=== PATIENT | female | born 1990 | race Caucasian/White ===

== ENCOUNTER 2025-02-27 12:45 | Emergency (ER) | payer OTHER ==
[~2025-02-27] VITALS: Ht 162.6 cm; Wt 55.0 kg
[2025-02-27] MEDS ORDERED: PAXLOVID 300-11 EAC1 PO (13:36)
--- OUTSIDE RECORDS SUMMARY | 2025-02-27 13:51 | XMS ---
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: [facility] 09/24/2016-[facility] [email or web address] GROUP PHONE: [phone] -, [facility] Dentist: Fleet Operations Manager [facility] PHONE: [phone] JOSE LEMONS [facility] INTERNAL MEDICINE-[place] PHONE: Unknown Blaire has no Care Guidelines for this patient. E.D. VISIT COUNT (12 MO.) 10 [facility] Cynthia Eduardo ([place]) 1 LON Elizalde TOTAL 11 NOTE: Visits indicate total known visits. ED/UCC VISIT TRACKING (12 MO.) 02/27/2025 12:46 [place] TYPE: Emergency COMPLAINT: - COLD SYMPTOMS 02/03/2025 16:39 [facility] Vesta ANDUJAR ([place]) TYPE: Emergency DIAGNOSES: - Unspecified abdominal pain - Abdominal Pain 01/30/2025 18:54 [facility] [place] ANDUJAR ([place] TYPE: Emergency DIAGNOSES: - Bacterial infection, unspecified - Bacterial infection, unspecified - Diarrhea, unspecified - Dizziness and giddiness - Migraine, unspecified, intractable, with status migrainosus - Unspecified abdominal pain - Unspecified abdominal pain - Urinary tract infection, site not specified - Urinary tract infection, site not specified - Abdominal Pain 01/28/2025 22:51 [facility] [place] ANDUJAR ([place] TYPE: Emergency DIAGNOSES: - Multiple sclerosis - back spasms, poss ms flare 01/15/2025 19:33 [facility] [place] ANDUJAR ([place] TYPE: Emergency DIAGNOSES: - Superficial foreign body, right foot, initial encounter - Foreign Body in Skin - splinter in rt foot 10/19/2024 03:40 [facility] [place] ([place]) TYPE: Emergency DIAGNOSES: - Other retention of urine - Other specified disorders of bladder - Unspecified abdominal pain - abd pain - Abdominal Pain 08/30/2024 20:53 [facility] [place] ([place]esta Lemons) TYPE: Emergency DIAGNOSES: - Dehydration - Migraine, unspecified, not intractable, without status migrainosus - Urinary tract infection, site not specified - Emesis - head pain - Headache (Adult - Recurrent Or Known Dx Migraines) - Muscle Pain 08/15/2024 13:48 [facility] Vesta Lemons PRAT[place] ([place]) TYPE: Emergency DIAGNOSES: - Migraine, unspecified, not intractable, without status migrainosus - Headache (Adult - Recurrent Or Known Dx Migraines) - Urinary Retention - urine retention,migraine 06/29/2024 10:46 [facility] [place] ([place]esta Lemons) TYPE: Emergency DIAGNOSES: - Cystitis, unspecified without hematuria - Right lower quadrant pain - abd pain - Abdominal Pain 04/02/2024 22:43 [facility] [place] ANDUJAR ([place]) TYPE: Emergency DIAGNOSES: - Adverse effect of glucocorticoids and synthetic analogues, initial encounter - Polydipsia - Headache (Adult - Recurrent Or Known Dx Migraines) - Headache (Peds - New Onset Or New Symptoms) - Hematuria - requesting insulin 03/09/2024 12:01 [facility] [place] ([place]esta Lemons) TYPE: Emergency DIAGNOSES: - Persistent migraine aura without cerebral infarction, intractable, with status migrainosus - Headache (Adult - Recurrent Or Known Dx Migraines) - mirgraine INPATIENT VISIT TRACKING (12 MO.) No inpatient visits to display in this time frame [email or web address]
[2025-02-27] MEDS ORDERED: CYCLOBENZAPRINE10 MG PO (13:59)
[2025-02-27 14:03] VITALS: BP 136/116
== END 2025-02-27 14:03 | disposition home or self-care (01) ==
LOC: ED 12:45
DX: U07.1 COVID-19 (principal); G35 Multiple sclerosis
CPT/HCPCS: 99283

== ENCOUNTER 2025-05-04 14:42 | Emergency (ER) | payer OTHER ==
[~2025-05-04] VITALS: Ht 162.6 cm; Wt 57.0 kg
[~2025-05-04 14:42] MED LIST: CYCLOBENZAPRINE10 MG PO; PAXLOVID 300-11 EAC1 PO
--- OUTSIDE RECORDS SUMMARY | 2025-05-04 14:48 | XMS ---
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 E.D. V[facility] (12 MO.) [facility] [facility] LON Elizalde TOTAL 12 NOTE: Visits indicate total known visits. ED/UCC VISIT TRACKING (12 MO.) 05/04/2025 14:[address] [facility] [address] Arturo Tan [place] TYPE: Emergency COMPLAINT: - COLD SYMPTOMS 04/06/2025 10:38 [facility] Alesha ANDUJAR ([place]) TYPE: Emergency DIAGNOSES: - Constipation, unspecified - Left lower quadrant pain - abd pain - Abdominal Pain 03/27/2025 13:16 [facility] Vesta Lemons PRATIM[place] ([place]) TYPE: Emergency DIAGNOSES: - Allergy to other foods - Allergy, unspecified, initial encounter - Allergic Reaction - Poss Allergic Reaction [facility]25 [facility] [place] [facility] COMPLAINT: - COLD SYMPTOMS DIAGNOSES: - COVID-19 - Headache, unspecified - Multiple sclerosis 02/03/2025 16:39 [facility] Vesta Lemons PRAT[place] ([place]) TYPE: Emergency DIAGNOSES: - Unspecified abdominal pain - Abdominal Pain 01/30/2025 18:54 [facility] Vesta ANDUJAR ([place]) TYPE: Emergency DIAGNOSES: - Bacterial infection, unspecified - Bacterial infection, unspecified - Diarrhea, unspecified - Dizziness and giddiness - Migraine, unspecified, intractable, with status migrainosus - Unspecified abdominal pain - Unspecified abdominal pain - Urinary tract infection, site not specified - Urinary tract infection, site not specified - Abdominal Pain 01/28/2025 22[facility] DIAGNOSES: - Multiple sclerosis - back spasms, poss ms flare 01/15/2025 19:33 [facility] TYPE: Emergency DIAGNOSES: - Superficial foreign body, right foot, initial encounter - Foreign Body in Skin - splinter in rt foot 10/19/2024 03:40 [facility] TYPE: Emergency DIAGNOSES: - Other retention of urine - Other specified disorders of bladder - Unspecified abdominal pain - abd pain - Abdominal Pain 08/30/2024 20:53 [facility] Vesta ANDUJAR ([place]) TYPE: Emergency DIAGNOSES: - Dehydration - Migraine, unspecified, not intractable, without status migrainosus - Urinary tract infection, site not specified - Emesis - head pain - Headache (Adult - Recurrent Or Known Dx Migraines) - Muscle Pain 08/15/2024 13:48 [facility] Vesta ANDUJAR ([place]) TYPE: Emergency DIAGNOSES: - Migraine, unspecified, not intractable, without status migrainosus - Headache (Adult - Recurrent Or Known Dx Migraines) - Urinary Retention - urine retention,migraine 06/29/2024 10:46 [facility] Vesta ANDUJAR ([place]) TYPE: Emergency DIAGNOSES: - Cystitis, unspecified without hematuria - Right lower quadrant pain - abd pain - Abdominal Pain INPATIENT VISIT TRACKING (12 MO.) No inpatient visits to display in this time frame [email or web address]
[2025-05-04] MEDS ORDERED: FLOMAX0.4 MG PO (20:08)
[2025-05-04] MEDS ORDERED: IBU600 MG PO (20:09)
[2025-05-04] MEDS ORDERED: LAMICTAL25 MG PO (20:10)
[2025-05-04] MEDS ORDERED: PROPRANOLOL HCL10 MG PO (20:10)
[2025-05-04] MEDS ORDERED: VENTOLIN HFA18 GM INH (20:11)
[2025-05-04] MEDS ORDERED: DOCUSATE SODIU100 MG PO (20:12)
[2025-05-04 20:24] LABS: CORONAVIRUS COVID-19 AG NEGATIVE (NEGATIVE)
[2025-05-04 22:25] VITALS: BP 114/63
== END 2025-05-04 22:25 | disposition home or self-care (01) ==
LOC: ED 14:42
PROVIDERS: Emergency Medicine
DX: J06.9 Acute upper respiratory infection, unspecified (principal); Z79.899 Other long term (current) drug therapy; Z88.0 Allergy status to penicillin
CPT/HCPCS: 36415; 71045; 99283-25

== ENCOUNTER 2025-05-20 21:08 | Emergency (ER) | payer OTHER ==
[~2025-05-20] VITALS: Ht 162.6 cm; Wt 59.5 kg
[~2025-05-20 21:08] MED LIST changes: +DOCUSATE SODIU100 MG PO; +FLOMAX0.4 MG PO; +IBU600 MG PO; +LAMICTAL25 MG PO; +PROPRANOLOL HCL10 MG PO; +VENTOLIN HFA18 GM INH
--- OUTSIDE RECORDS SUMMARY | 2025-05-20 21:09 | XMS ---
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 E.D. VISIT COUNT (12 MO.) 10 Brianne Gupta CarlitosRosa ([place]) [address] [facility] Arturo Peña TOTAL 13 NOTE: Visits indicate total known visits. ED/UCC VISIT TRACKING (12 MO.) 05/20/2025 21:09 [facility] [place] TYPE: Emergency COMPLAINT: - LEG SWELLING 05/04/2025 14:42 [facility] [place] TYPE: Emergency COMPLAINT: - COLD SYMPTOMS DIAGNOSES: - Acute upper respiratory infection, unspecified - Allergy status to penicillin - Cough, unspecified - Other intermediate (current) drug therapy 04/06/2025 10:38 [facility] Vesta ANDUJAR ([place]) TYPE: Emergency DIAGNOSES: - Constipation, unspecified - Left lower quadrant pain - abd pain - Abdominal Pain 03/27/2025 13:16 [facility] Vesta ANDUJAR ([place]) TYPE: Emergency DIAGNOSES: - Allergy to other foods - Allergy, unspecified, initial encounter - Allergic Reaction - Poss Allergic Reaction 02/27/2025 12[facility] [place] [facility] COMPLAINT: - COLD SYMPTOMS DIAGNOSES: - COVID-19 - Headache, unspecified - Multiple sclerosis 02/03/2025 16:39 [facility] Vesta ANDUJAR ([place]) TYPE: Emergency DIAGNOSES: - Unspecified abdominal pain - Abdominal Pain 01/30/2025 18:54 [facility] Vesta ANDUJAR ([place]) TYPE: Emergency DIAGNOSES: - Bacterial infection, unspecified - Bacterial infection, unspecified - Diarrhea, unspecified - Dizziness and giddiness - Migraine, unspecified, intractable, with status migrainosus - Unspecified abdominal pain - Unspecified abdominal pain - Urinary tract infection, site not specified - Urinary tract infection, site not specified - Abdominal Pain 01/28/2025 22:51 [facility] Vesta ANDUJAR ([place]) TYPE: Emergency DIAGNOSES: - Multiple sclerosis - back spasms, poss ms flare 01/15/2025 19:33 [facility] Vesta ANDUJAR ([place] Lem[place]) TYPE: Emergency DIAGNOSES: - Superficial foreign body, right foot, initial encounter - Foreign Body in Skin - splinter in rt foot 10/19/2024 03:40 [facility] Vesta Lemons PRATIM[place] ([place]) TYPE: Emergency DIAGNOSES: - Other retention of urine - Other specified disorders of bladder - Unspecified abdominal pain - abd pain - Abdominal Pain 08/30/2024 20:53 [facility] [place] PRATIMA (Vesta Lemons) TYPE: Emergency DIAGNOSES: - Dehydration - Migraine, unspecified, not intractable, without status migrainosus - Urinary tract infection, site not specified - Emesis - head pain - Headache (Adult - Recurrent Or Known Dx Migraines) - Muscle Pain 08/15/2024 13:48 [facility] Vesta Lemons PRATIMA ([place]) TYPE: Emergency DIAGNOSES: - Migraine, unspecified, not intractable, without status migrainosus - Headache (Adult - Recurrent Or Known Dx Migraines) - Urinary Retention - urine retention,migraine 06/29/2024 10:[facility] DIAGNOSES: - Cystitis, unspecified without hematuria - Right lower quadrant pain - abd pain - Abdominal Pain INPATIENT VISIT TRACKING (12 MO.) 05/15/2025 14:07 Marcin SANTOYO [place] ([facility]) TYPE: Neurology DIAGNOSES: - Migraine without aura, not intractable, without status migrainosus - Multiple sclerosis, unspecified [email or web address]
[2025-05-20] MEDS ORDERED: RIZATRIPTAN10 M1 PO (21:40)
[2025-05-20] MEDS ORDERED: EPINEPHRIN0.3 MG/0.3 IM (21:40)
[2025-05-20 22:09] LABS: BASOPHILS 0.1 % (0.1-1.2); EOSINOPHILS 0.5 % (0.7-5.8); LYMPHOCYTES 33.7 % (19.3-51.7); MCH 30.8 PG (25.6-32.2); MCHC 34.0 g/dL (32.2-35.5); MCV 90.6 fL (79.4-94.8); MONOCYTES 8.8 % (4.7-12.5); NEUTROPHILS 56.5 % (34.0-71.1); RBC 3.51 M/uL (3.93-5.22)
[2025-05-20 22:33] LABS: ALT (SGPT) 33.0 U/L (14-59); AST (SGOT) 8.0 U/L (15-37); GLOMERULAR FILTRATION RATE,EST 90.0 mL/min (>60); PROTEIN, TOTAL 5.3 g/dL (6.4-8.2); UREA NITROGEN 31.0 mg/dL (7-18)
[2025-05-20] MEDS ORDERED: POTASSIUM CHLORIDE 10 MEQ/100 ML BAG IV SCH (23:00)
[2025-05-20] MEDS ORDERED: CALCIUM GLUCONATE 1,000 MG/10 ML VIAL IV ONE (23:00)
[2025-05-20] MEDS ORDERED: POTASSIUM CHLORIDE 10 MEQ TABCR PO ONE (23:00)
[2025-05-21] MEDS ORDERED: KLOR-CON M2020 MEQ PO (01:58)
[2025-05-21] MEDS ORDERED: HYDROCODONE BIT/ACETAMINOPHEN 5/325 MG 1 TAB HOME.PACK PO ONE (02:15)
[2025-05-21] MEDS ORDERED: ONDANSETRON 4 MG HOME.PACK SL ONE (02:15)
[2025-05-21 02:17] VITALS: BP 104/82
== END 2025-05-21 02:18 | disposition home or self-care (01) ==
LOC: ED 21:08
PROVIDERS: Internal Medicine
DX: E87.6 Hypokalemia (principal); E86.0 Dehydration; E83.51 Hypocalcemia; Z79.899 Other long term (current) drug therapy; Z88.0 Allergy status to penicillin; Z91.040 Latex allergy status; Z88.5 Allergy status to narcotic agent; Z88.1 Allergy status to other antibiotic agents; Z91.018 Allergy to other foods
CPT/HCPCS: 36415; 71045; 80053; 83735; 83880; 84703; 85025; 85379; 96365; 96366; 96375; 99283-25; A9270; J0612; J3480